=== PATIENT | female | born 1935 | race Caucasian/White ===

== ENCOUNTER → 2016-04-11 | Outpatient (CLI) | payer MEDICARE ==
--- NOTE | 2016-04-11 08:46 | Diagnostic Imaging Report ---
PROCEDURE: CT head with and without contrast. TECHNIQUE: Multiple contiguous axial images were obtained through the brain before and after the administration of intravenous contrast. INDICATION: Memory loss. COMPARISON: None. FINDINGS: Generalized cerebral and cerebellar parenchymal volume loss. Mild leukoaraiosis. No CT evidence of acute infarction. No intracranial hemorrhage, mass effect, extra-axial fluid collections or hydrocephalus. No abnormal enhancement. Osseous structures are intact. The visualized paranasal sinuses and orbits are unremarkable. IMPRESSION: No acute intracranial CT findings. No abnormal intracranial enhancement. Dictated by: Dictated on workstation # [id number]
== END ==
LOC: RAD 07:55
PROVIDERS: ATTEND Psychiatry & Neurology Neurology
DX: R41.3 Other amnesia (principal)
CPT/HCPCS: 70470; Q9967